=== PATIENT | female | born 1965 | race Caucasian/White ===

== ENCOUNTER → 2020-08-28 16:02 | Outpatient (CLI) | payer BC, SELFPAY ==
--- NOTE | ~2020-08-28 | MM_ITS ---
EXAMINATION: MM screening [facility] w catherine HISTORY: Screening mammogram TECHNIQUE: Craniocaudal and mediolateral oblique 3-D tomosynthesis images were obtained and synthetic 2-D images were generated. CAD analysis was submitted and interpreted. COMPARISON: 10/15/2017, 09/17/2016, 03/06/2015 bilateral digital screening mammogram examinations BREAST PARENCHYMAL COMPOSITION: There are scattered areas of fibroglandular density. FINDINGS: There is no evidence of suspicious mass, calcification, or architectural distortion to sugg est malignancy in either breast. There has been no suspicious interval change. IMPRESSION: 1. No mammographic evidence of malignancy. 2. Recommend routine screening mammography in one year. BI-RADS Category 1: Negative Reviewed, dictated and finalized at location A. 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
== END ==
PROVIDERS: Visit Provider Advanced Practice Midwife
DX: Z12.31 Encounter for screening mammogram for malignant neoplasm of breast (principal)
CPT/HCPCS: 77063; 77067

== ENCOUNTER → 2022-02-25 13:31 | Outpatient (CLI) | payer BC, SELFPAY ==
--- NOTE | ~2022-02-25 | MM_ITS ---
EXAMINATION: MM screening [facility] w catherine HISTORY: Screening mammogram TECHNIQUE: Craniocaudal and mediolateral oblique 3-D tomosynthesis images were obtained and synthetic 2-D images were generated. CAD analysis was submitted and interpreted. COMPARISON: 08/28/2020, 10/15/2017 bilateral screening mammogram examinations BREAST PARENCHYMAL COMPOSITION: There are scattered areas of fibroglandular density. FINDINGS: There is no evidence of suspicious mass, calcification, or architectural distortion to sugg est malignancy in either breast. There has been no suspicious interval change. IMPRESSION: 1. No mammographic evidence of malignancy. 2. Recommend routine screening mammography in one year. BI-RADS Category 1: Negative Reviewed, dictated and finalized at location A.
== END ==
PROVIDERS: PCP Advanced Practice Midwife; Visit Provider Advanced Practice Midwife
DX: Z12.31 Encounter for screening mammogram for malignant neoplasm of breast (principal)
CPT/HCPCS: 77063; 77067

== ENCOUNTER 2023-05-01 08:45 | Outpatient (CLI) | payer BC, SELFPAY ==
--- NOTE | ~2023-05-01 | MM_ITS ---
EXAMINATION: MM screening [facility] BI w catherine HISTORY: Screening mammogram TECHNIQUE: Craniocaudal and mediolateral oblique 3-D tomosynthesis images were obtained and synthetic 2-D images were generated. CAD analysis was submitted and interpreted. COMPARISON: 02/25/2022, 08/28/2020, 10/15/2017 BREAST PARENCHYMAL COMPOSITION: There are scattered areas of fibroglandular density. FINDINGS: No suspicious mass, calcification, or architectural distortion are identified in either isela ast to suggest malignancy. There has been no suspicious interval change. IMPRESSION: 1. No mammographic evidence of malignancy. 2. Recommend routine screening mammography in one year. BI-RADS Category 1: Negative Reviewed, dictated and finalized at location A.
== END 2023-05-01 08:46 | disposition home or self-care (01) ==
PROVIDERS: PCP Family Medicine; Visit Provider Obstetrics & Gynecology
DX: Z12.31 Encounter for screening mammogram for malignant neoplasm of breast (principal)
CPT/HCPCS: 77063; 77067

== ENCOUNTER → 2023-05-29 09:53 | Outpatient (CLI) | payer BC, SELFPAY ==
--- NOTE | ~2023-05-29 | XR_ITS ---
XR hip LT min 2V 05/29/2023 12:54 Indication: Left hip pain Procedure: 2 views left hip Comparison: No prior studies for comparison. Findings: No fracture, subluxation or dislocation. No significant soft tissue abnormality. There is a large calcification in the left pelvis, likely calcified uterine fibroid Impression: 1: No acute bone or joint abnormality. Reviewed, dictated and finalized at location L. Impression: 1: No acute bone or joint abnormality.
== END ==
PROVIDERS: PCP Physician Assistant Medical; Visit Provider Physician Assistant Medical
DX: M25.552 Pain in left hip (principal)
CPT/HCPCS: 73502

== ENCOUNTER 2023-12-24 10:56 | Outpatient (CLI) | payer BC, SELFPAY ==
--- NOTE | ~2023-12-24 | XR_ITS ---
Right Hand Technique: PA and lateral views were obtained. Clinical History: Pain Findings: No acute fracture or dislocation is seen. Osseous alignment is anatomic. Joint spaces are p reserved. Soft tissues are unremarkable. Impression: Unremarkable right hand. Reviewed, dictated and finalized at location M. Impression: Unremarkable right hand.
--- NOTE | ~2023-12-24 | XR_ITS ---
Left Hand Technique: PA and lateral views were obtained. Clinical History: Pain Findings: No acute fracture or dislocation is seen. Osseous alignment is anatomic. Joint spaces are p reserved. Soft tissues are unremarkable. Impression: Unremarkable left hand. Reviewed, dictated and finalized at location M. Impression: Unremarkable left hand.
== END 2023-12-24 10:57 ==
PROVIDERS: PCP Physician Assistant Medical
DX: M25.50 Pain in unspecified joint (principal); L40.9 Psoriasis, unspecified; M54.59 Other low back pain; Z79.899 Other long term (current) drug therapy; M79.18 Myalgia, other site
CPT/HCPCS: 73120

== ENCOUNTER 2024-06-21 11:36 | Outpatient (CLI) | payer BC, SELFPAY ==
--- NOTE | ~2024-06-21 | MM_ITS ---
EXAMINATION: MM screening [facility] BI w catherine HISTORY: Screening mammogram TECHNIQUE: Craniocaudal and mediolateral oblique 3-D tomosynthesis images were obtained and synthetic 2-D images were generated. CAD analysis was submitted and interpreted. COMPARISON: 05/01/2023, 02/25/2022, 08/28/2020 BREAST PARENCHYMAL COMPOSITION:Not Dense. There are scattered areas of fibroglandular density. FINDINGS: No suspicious mass, calcification, or architectural distortion are identified in either isela ast to suggest malignancy. There has been no suspicious interval change. IMPRESSION: No mammographic evidence of malignancy. Recommend routine screening mammography in one year. BI-RADS Category 1: Negative Reviewed, dictated and finalized at location .
== END 2024-06-21 11:37 | disposition home or self-care (01) ==
LOC: MICIMG 11:37
PROVIDERS: PCP Obstetrics & Gynecology; Visit Provider Physician Assistant Medical
DX: Z12.31 Encounter for screening mammogram for malignant neoplasm of breast (principal)
CPT/HCPCS: 77063; 77067

== ENCOUNTER 2025-07-15 08:56 | Outpatient (CLI) | payer BC, SELFPAY ==
--- NOTE | ~2025-07-15 | DEXA_ITS ---
Bone Density Report Name: JEREMIAS FOLEY Age: 59 Sex: Female Ethnicity: White Date of : 1965 Indication: postmenopausal; screening for osteoporosis; Referring Provider: YANG CHEEK Study: Bone densitometry was performed. Exam Date: July 15, 2025 Accession number: [id number] Bone Density: Region BMD T-score Z-score Classification AP Spine(L1-L4) 1.078 0.3 1.7 Normal Femoral Neck (Left) 0.872 0.2 1.5 Normal Total Hip (Left) 1.036 0.8 1.7 Normal Femoral Neck (Right) 0.936 0.8 2.1 Normal Total Hip (Right) 1.065 1.0 1.9 Normal Total Hip Mean 1.050 0.9 1.8 Normal World Health Organization criteria for BMD impression classify patients as: Normal (T-score at or above -1.0), Osteopenia (T-score between -1.0 and -2.5), or Osteoporosis (T-score at or below -2.5). 10-year Fracture Risk: FRAX not reported because: All T-scores for Spine Total, Hip Total, Femoral Neck at or above -1.0 Clinical Information Provided by Patient: Has used the following medications: HRT (i.e. estrogen/hormone therapy) Patient maximum height was 61 Menopause Age: 58 No regular weight bearing exercise Drinks caffeinated beverages Onset of menses at age 13 Number of children 0 Missed period for more than 6 months in a row Impression: The patient has normal bone mass. Discussion: BONE DENSITY IS ABOVE THE MINIMUM DESIRABLE LEVEL AT ALL SKELETAL SITES TESTED. This patient?s bone mineral density is above the minimum desirable level (T-score -1.0 or better) at all sites measured. The patient should follow a healthful lifestyle (good nutrition with adequate calcium and vitamin D, and appropriate weight-bearing exercise). Follow-Up: Consider repeating this study in 5 years or sooner if there is some new clinical indication. Reported by: REBEKA on 07/15/2025 9:57:00 AM. Reviewed, dictated and finalized at location A.
== END 2025-07-15 08:57 | disposition home or self-care (01) ==
PROVIDERS: PCP Obstetrics & Gynecology; Visit Provider Obstetrics & Gynecology
DX: Z78.0 Asymptomatic menopausal state (principal)
CPT/HCPCS: 77080

== ENCOUNTER 2025-07-28 08:13 | Outpatient (CLI) | payer BC, SELFPAY ==
--- NOTE | ~2025-07-28 | XR_ITS ---
XR lumbar spine min 4V 07/28/2025 08:46 Indication: Right-sided low back pain Procedure: 5 views lumbar spine Comparison: No prior studies for comparison. Findings: Vertebral body heights are maintained. There is mild disc narrowing at L2-3 and L3-4. No fracture, subluxation or spondylolisthesis. No spondylolysis. Densely calcified mass left pelvis, likely calcified uterine fibroid. Pedicles intact. Sacral foramen are symmetric. Impression: 1: Mild lumbar spondylosis. Reviewed, dictated and finalized at location O. Impression: 1: Mild lumbar spondylosis.
== END 2025-07-28 08:14 | disposition home or self-care (01) ==
LOC: MICIMG 08:18
PROVIDERS: PCP Obstetrics & Gynecology
DX: M54.41 Lumbago with sciatica, right side (principal); M47.896 Other spondylosis, lumbar region
CPT/HCPCS: 72110

== ENCOUNTER 2025-09-22 14:48 | Outpatient (CLI) | payer BC, SELFPAY ==
--- NOTE | ~2025-09-22 | MM_ITS ---
EXAMINATION: MM screening iraida BI w catherine HISTORY: Screening TECHNIQUE: Craniocaudal and mediolateral oblique 3-D tomosynthesis images were obtained and synthetic 2-D images were generated. CAD analysis was submitted and interpreted. COMPARISON: Comparison to multiple prior studies sequentially, with oldest reviewed study dated 09/17/2016. BREAST PARENCHYMAL COMPOSITION: Not dense: There are scattered areas of fibroglandular density. FINDINGS: There is no evidence of suspicious mass, calcification, or architectural distortion to suggest malignancy in either breast. There has been no suspicious interval change. IMPRESSION: 1. No mammographic evidence of malignancy. 2. Recommend routine screening mammography in one year. BI-RADS Category 1: Negative Reviewed, dictated and finalized at location O. 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
--- OUTSIDE RECORDS SUMMARY | 2025-09-22 15:45 | XMS_ITS | Clinical Summary ---
Author Organization [facility] [address] Address [address] [place] [address] Care Team Providers Care Insurance Sales Producer Name Role Phone Alisa Munson MD Primary Care Provider Allergies No known active allergies Medications estradioL (ESTRACE) 1 mg tablet Take 1 mg by mouth daily. 07/18/2025 Active progesterone micronized (PROMETRIUM) 100 mg Capsule Take 100 mg by mouth daily. Active Active Problems No known active problems Encounters Date Type Department Care Team Description 08/23/2025 External Device Data [facility] ABSTRACTION Provider, Abstract 08/01/2025 Results Follow-Up [facility] [address] [place] [phone] Rebeka Reyes PA XR LUMBAR SPINE 4+ VW 08/01/2025 Orders Only [facility] [address] [place] [phone] Rebeka Reyes PA 07/29/2025 Results Follow-Up [facility] [address] [place] [phone] Rebeka Reyes PA CBC WITH DIFFERENTIAL, COMPREHENSIVE METABOLIC PANEL, HEMOGLOBIN A1C, Additional followed-up results: 3 07/27/2025 External Device Data [facility] ABSTRACTION Provider, Abstract 07/27/2025 External Device Data [facility] ABSTRACTION Provider, Abstract 07/26/2025 External Device Data [facility] ABSTRACTION Provider, Abstract 07/22/2025 Telephone [facility] [address] [place] [phone] Alisa Munson MD Needs Orders Written 07/21/2025 Orders Only [facility] [address] [place] [phone] Provider, Abstract 07/19/2025 3:00 PM CDT Office Visit [facility] [address] [place] [phone] Rebeka Reyes PA Encounter to establish care (Primary Dx); Chronic right-sided low back pain with right-sided sciatica; Screening for colon cancer; Screening for cardiovascular condition; Screening for diabetes mellitus; Vitamin D deficiency; Anxiety; History of postmenopausal bleeding from Last 3 Months Social History Tobacco Use Types Packs/Day Years Used Date Smoking Tobacco: Never Smokeless Tobacco: Never Tobacco Cessation:Counseling Given: Not Answered Alcohol Use Standard Drinks/Week Comments Yes 0 (1 standard drink = 0.6 oz pur e alcohol) SOCIAL Comments No Sex and Gender Information Value Date Recorded Sex Assigned at Not on file Legal Sex Female 12:42 PM CDT Gender Identity Not on file Sexual Orientation Not on file Last Filed Vital Signs Vital Sign Reading Time Taken Comments Blood Pressure 110/60 07/19/2025 2:57 PM CDT Pulse 75 07/19/2025 2:57 PM CDT Temperature - - Respiratory Rate - - Oxygen Saturation 97% 07/19/2025 2:57 PM CDT Inhaled Oxygen Concentration - - Weight 70.9 kg (156 lb 3.2 oz) 07/19/2025 2:57 P M CDT Height 154.9 cm (5' 1) 07/19/2025 2:57 PM CDT Body Mass Index 29.51 07/19/2025 2:57 PM CDT Plan of Treatment Upcoming Encounters Date Type Department Care Team (Late st Contact Info) Description 09/28/2025 9:30 AM MAINTENANCE COORDINATOR Office Visit [facility] [address] [place] [phone] Rebeka Reyes PA [address] [place] [phone] 06/22/2026 9:30 AM CDT Office Visit [facility] [place] [address] [place] [address] Alisa Munson MD [address] [place] [address] Health Maintenance Due Date Last Done Comments DTAP/TDAP/TD VACCINES (1 - Tdap) 1984 HPV/Cotest (21-29) 1986 HPV/Cotest (30-65) 1995 COLORECTAL SCREENING 2010 Colorectal Cancer Screening 2010 FIT-DNA Q 3 years 2010 FIT/FOBT Q 1 year 2010 Flex Sig/CT Colonography Q 5 years 2010 ZOSTER VACCINE (1 of 2) 2015 INFLUENZA VACCINE (#1) 2025 COVID-19 Vaccine (2 - season) 2025 12/12/2020 BREAST CANCER SCREENING 06/21/2025 06/21/20 24, 02/25/2022, 08/28/2020 CERVICAL CANCER SCREENING 05/12/2028 PAP SMEAR 05/12/2028 05/12/2025 Pre-Diabetes and Diabetes Screening 07/28/2028 07/28/2025 RSV VACCINE (60+ or ) (1 - 1-dose 75+ series) 2040 Preventative Visit- Commercial Completed 07/19/2025, 02/09/2024, 01/02/2022, Additional history exists HEPATITIS B VACCINES Aged Out No long er eligible based on patient's age to complete this topic Procedures Procedure Name Priority Date/Time Associated Diagnosis Comments XR LUMBAR SPINE 4+ VW Routine 07/28/2025 8:40 AM CDT TSH REFLEXIVE Routine 07/28/2025 7:42 AM CDT Anxiety LIPID PANEL Routine 07/28/2025 7:42 AM CDT Screening for cardiovascular condition VITAMIN D 25 HYDROXY Routine 07/28/2025 7:42 AM CDT Vitamin D deficiency HEMOGLOBIN A1C Routine 07/28/2025 7:42 AM CDT Screening for diabetes mellitus COMPREHENSIVE METABOLIC PANEL Routine 07/28/2025 7:42 AM CDT Encounter to establish care CBC WITH DIFFERENTIAL Routine 07/28/2025 7:42 AM CDT Encounter to establish care XR DEXA BONE DENSITY AXIAL 1 OR MORE SITES Routine 07/15/2025 2:48 PM CDT MAMMO SCREENING BILAT Routine 06/21/2024 2:50 PM CDT from Last 3 Months or Most Recently Relevant to Health Maintenance Results * XR LUMBAR SPINE 4+ VW (07/28/2025 8:40 AM CDT) Anatomical Region Laterality Modality Spine Other us Rebeak KEVIN DIAGNOSTIC IMAGIN G ORDERABLES Final Result * TSH REFLEXIVE (07/28/2025 7:42 AM CDT) TSH 4.26 0.40 - 4.50 mIU/L [facility] Comment: Test Performed at: [facility] [address] [place] [address] De Monahan MD Blood 07/28/2025 7:42 AM CDT 07/28/2025 7:43 AM CDT us Rebeka KEVIN CHEMISTRY ORDERAB LES Final Result [facility] [phone] [facility] [address] [place] [address] * CBC WITH DIFFERENTIAL (07/28/2025 7:42 AM CDT) WBC 6.3 3.8 - 10.8 Thousand/u L [facility] RBC 4.21 3.80 - 5.10 Million/uL [facility] HEMOGLOBIN 13.1 11.7 - 15.5 g/dL [facility] HEMATOCRIT 39.7 35.0 - 45.0 % [facility] MCV 94.3 80.0 - 100.0 fL [facility] MCH 31.1 27.0 - 33.0 pg [facility] MCHC 33.0 32.0 - 36.0 g/dL [facility] Comment: For adults, a slight decrease in the calculated MCHC value (in the range of 30 to 32 g/dL) is most likely not clinically significant; however, it should be interpreted with caution in correlation with other red cell parameters and the patient's clinical condition. RDW 12.6 11.0 - 15.0 % [facility] PLATELETS 171 140 - 400 Thousand/u L [facility] MPV 10.9 7.5 - 12.5 fL [facility] NEUTROPHIL ABSOLUTE 4,139 1,500 - 7,800 cells/uL [facility] LYMPHOCYTE ABSOLUTE 1,424 850 - 3,900 cells/uL [facility] MONOCYTE ABSOLUTE 384 200 - 950 cells/uL [facility] EOSINOPHIL ABSOLUTE 321 15 - 500 cells/uL [facility] BASOPHILS ABSOLUTE 32 0 - 200 cells/uL [facility] NEUTROPHIL 65.7 % [facility] LYMPHOCYTES 22.6 % [facility] MONOCYTE 6.1 % [facility] EOSINOPHILS 5.1 % [facility] BASOPHILS 0.5 % [facility] Comment: Test Performed at: [facility] [address] [facility] [place] [address] De Monahan MD Blood 07/28/2025 7:42 AM CDT 07/28/2025 7:43 AM CDT us Rebeka KEVIN HEMATOLOGY ORDERA BLES Final Result [facility] [phone] [facility] [employer] [address] [place] [address] * VITAMIN D 25 HYDROXY (07/28/2025 7:42 AM CDT) VITAMIN D, 25 OH, TOTAL 60 30 - 100 ng/mL [facility] Comment: Vitamin D Status 25-OH Vitamin D: Deficiency: <20 ng/mL Insufficiency: 20 - 29 ng/mL Optimal: > or = 30 ng/mL For 25-OH Vitamin D testing on patients on D2-supplementation and patients for whom quantitation of D2 and D3 fractions is required, the QuestAssureD(TM) 25-OH VIT D, (D2,D3), LC/MS/MS is recommended: order code 10907 (patients >2yrs). See Note 1 Note 1 For additional information, please refer to http://education.Restalo/faq/JJJ477 (This link is being provided for informational/ educational purposes only.) Test Performed at: [facility] [address] De Monahan MD Blood 07/28/2025 7:42 AM CDT 07/28/2025 7:43 AM CDT Rebeka KEVIN CHEMISTRY ORDERAB LES Final Result [facility] [phone] [facility] [address] * HEMOGLOBIN A1C (07/28/2025 7:42 AM CDT) HEMOGLOBIN A1C 5.3 <5.7 % of total Hgb [facility] Comment: For the purpose of screening for the presence of diabetes: <5.7% Consistent with the absence of diabetes 5.7-6.4% Consistent with increased risk for diabetes (prediabetes) > or =6.5% Consistent with diabetes This assay result is consistent with a decreased risk of diabetes. Currently, no consensus exists regarding use of hemoglobin A1c for diagnosis of diabetes in children. According to [place] Diabetes Association (ADA) guidelines, hemoglobin A1c <7.0% represents optimal control in non- diabetic patients. Different metrics may apply to specific patient populations. Standards of Medical Care in Diabetes(ADA). ESTIMATED AVERAGE GLUCOSE (MG/DL) 105 mg/dL [facility] [employer] ESTIMATED AVERAGE GLUCOSE (MMOL/L) 5.8 mmol/L [facility] Comment: Test Performed at: [facility] [address] [place] [address] De Monahan Blood 07/28/2025 7:42 AM CDT 07/28/2025 7:43 AM CDT Rebeka KEVIN CHEMISTRY ORDERAB LES Final Result [facility] [phone] [facility] [address] [place] [address] * (ABNORMAL) LIPID PANEL (07/28/2025 7:42 AM CDT) CHOLESTEROL 196 <200 mg/dL [facility] HDL 75 > OR = 50 mg/dL [facility] TRIGLYCERIDE 95 <150 mg/dL [facility] LDL CALCULATED 102(H) mg/dL (calc) [facility] Comment: Reference range: <100 Desirable range <100 mg/dL for primary prevention; <70 mg/dL for patients with CHD or diabetic patients with > or = 2 CHD risk factors. LDL-C is now calculated using the Ilia calculation, which is a validated novel method providing better accuracy than the Friedewald equation in the estimation of LDL-C. Darek GRULLON et al. JAMEEL. 2013;310(19): 4873-7303 (http://education.Websense.[place] PUD/faq/MCU145) CHOL/HDL RATIO 2.6 <5.0 (calc) [facility] NON-HDL CHOLESTEROL 121 <130 mg/dL (calc) [facility] Comment: For patients with diabetes plus 1 major ASCVD risk factor, treating to a non-HDL-C goal of <100 mg/dL (LDL-C of <70 mg/dL) is considered a therapeutic option. Test Performed at: [facility] [address] [address] De Monahan MD Blood 07/28/2025 7:42 AM CDT 07/28/2025 7:43 AM CDT us Rebeka KEVIN CHEMISTRY ORDERAB LES Final Result [facility] [phone] [facility] [address] [address] * COMPREHENSIVE METABOLIC PANEL (07/28/2025 7:42 AM CDT) GLUCOSE 91 65 - 99 mg/dL [facility] Comment: Fasting reference interval BUN 17 7 - 25 mg/dL [facility] CREATININE 0.82 0.50 - 1.03 mg/dL [facility] GFR 82 > OR = 60 mL/min/1. 73m2 [facility] BUN/CREAT RATIO SEE NOTE: 6 - 22 (calc) [facility] Comment: Not Reported: BUN and Creatinine are within reference range. SODIUM 141 135 - 146 mmol/L [facility] POTASSIUM 4.3 3.5 - 5.3 mmol/L [facility] CHLORIDE 104 98 - 110 mmol/L [facility] CO2 32 20 - 32 mmol/L [facility] CALCIUM 9.0 8.6 - 10.4 mg/dL [facility] TOTAL PROTEIN 6.1 6.1 - 8.1 g/dL [facility] ALBUMIN 4.1 3.6 - 5.1 g/dL [facility] GLOBULIN 2.0 1.9 - 3.7 g/dL (calc) [facility] ALBUMIN/GLOBULIN RATIO 2.1 1.0 - 2.5 (calc) [facility] BILIRUBIN TOTAL 0.7 0.2 - 1.2 mg/dL [facility] ALKALINE PHOSPHATASE 75 37 - 153 U/L [facility] AST 19 10 - 35 U/L [facility] ALT 11 6 - 29 U/L [facility] Comment: Test Performed at: [facility] [address] [place] [address] De Monahan MD Blood 07/28/2025 7:42 AM CDT 07/28/2025 7:43 AM CDT us Rebeka KEVIN CHEMISTRY ORDERAB LES Final Result [facility] [phone] [facility] [address] [place] [address] * XR DEXA BONE DENSITY AXIAL 1 OR MORE SITES (07/15/2025 2:48 PM CDT) Anatomical Region Laterality Modality Other us Abstract Provider DIAGNOSTIC IMAGING ORDERABLES Edited Result - Final * MAMMO SCREENING BILAT (06/21/2024 2:50 PM CDT) Anatomical Region Laterality Modality Breast Bilateral Mammography us Abstract Provider MAMMO ORDERABLES Edited Result - Final from Last 3 Months or Most Recently Relevant to Health Maintenance Insurance Care Teams Insurance Sales Producer Relationship Specialty Start Date End Date Alisa Munson MD [address] [place] [address] PCP - General Family Practice 07/19/25
--- OUTSIDE RECORDS SUMMARY | 2025-09-22 15:45 | XMS_ITS | Continuity of Care Document ---
Author Organization [facility] [place] Address [address] [place] [address] Assessment No assessment recorded. Plan of Treatment Reminders Order Date Submit Date Provider Last Modified By Organization Details Last Modified Time Details Appointments None recorded. Lab surgical pathology study 2024 025 [facility] (Lab), [address], [place], [address], 20:53:11 test, urine 2024 025 [id number], [place], [address], 10:12:43 Referral None recorded. Procedures None recorded. Surgeries None recorded. Imaging None recorded. Medication Orders None recorded. Patient TargetsNo targets recorded. Patient InstructionsNo instructions recorded. Reason for Referral None Reported. Results Created Date Observation Date Name Description Value Unit Range Abnormal Flag Note LastModifiedBy Organization Detail LastModifiedTime 07/05/2007/05/2025 SURGI TY PATHO LOGY surgical pathology SEE RESULT S BELOW CASE REPOR T: Surgi ty Patho logy Repor t Case: [id number] Autho hitesh lanier Provi yaneli: Elizabeth Goncalves MD Colle cted: 07/05 1341 Order ing Locat ion: [place] Patho logy Recei sabrina: 07/06 0318 Patho logis t: Eleno Conn MD Speci men: Alberto servin, EMB ----- ----- ----- ----- ----- ----- ----- ----- ----- ----- ----- ----- ----- ----- ----- ----- ----- ---- FINAL DIAGN OSIS: Alberto servin, biops y: -Supe rfici al strip s of inact porter endom etriu gareth. -Mark gn cervi ty tissu e. Elect eddie cartwright by Eleno Conn MD on 2024 at 1949 CDT ----- ----- ----- ----- ----- ----- ----- ----- ----- ----- ----- ----- ----- ----- ----- ----- ----- ---- CLINI TY INFOR MATIO N: Thick ened Endom jevona majo lanier MICRO SCOPI C DESCR IPTIO N: A micro scopi c exami natio n was perfo rmed. GROSS DESCR IPTIO N: A. Endom etriu m. The speci men is recei sabrina in danyelle hanley ed with the patie nt's name and demog raphi cs only. It consi sts of a 2.6 x 2.0 x 0.2 cm aggre gate of mucus and minut e brown tissu e. The speci men is submi tted entir joon in 1 casse tte. Gross ed by Chrissie rosenberg Not Available [facility] (Lab) [address], [place], [address], 07/06/2025 20:53:10 07/05/2007/05/2025 pregn valerio test, urine HCG negati ve Not Available [facility], [place], [address], 07/05/2025 09:53:21 07/15/2007/15/2025 DEXA, axial skele ton + verte bral fract ure asses sment No observ ation record ed. [facility] [address], [place], [address], 07/19/2025 10:17:28 07/28/2007/28/2025 XR, lumba r spine No observ ation record ed. [email or web address] [facility] [address], [place], [address], 07/30/2025 22:12:05 Result Notes None recorded. Problems Name Problem SNOMED Code Status Onset Date Resolution Date Notes Provider Name and Address Organization Details Recorded Time Screenin g for malignan t neoplasm of cervix Completed 201412/20/2020 Pap Smear;[facility] 0001 [facility] Screenin g for malignan t neoplasm of rectum Completed 201412/20/2020 Screenin g for malignan t neoplasm s of the rectum;P ractice ID: 0001 Malia lynn [facility] 16:06:33 Overwe ht [id number] Completed 201412/20/2020 Overwe ht;Recor ded Elsewher e: No Locat ion: [facility] S ource: [employer] Project Builder thomas: N Practi ce ID: 0001 Gualberto lable Time: 03:30:00 PM Malia lynn [facility] 16:06:28 Adult health examinat ion Completed 201412/20/2020 ROUTINE MEDICAL EXAM;Rec orded Elsewher e: No Locat ion: [facility] S ource: [employer] thomas: N Practi ce ID: 0001 Gualberto lable Time: 03:30:00 PM Malia lynn, [facility] 16:06:21 Speciali jungd medical examinat ion Completed 201412/20/2020 Gynecolo gical Examinat ion;Christiano rded Elsewher e: No Locat ion: [facility] N Dre ce ID: 0001 Gualberto lable Time: 03:30:00 PM Malia lynn, [facility] 16:06:[address] Concept Completed 201512/20/2020 Encntr for general adult medical exam w/o abnormal findings ;Practic e ID: 0001 Malia lynn, [facility] 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 16:06:37 Body mass index 25-29 - overweig ht [id number] Completed 201712/20/2020 Body mass index (BMI) 29.0-29. 9, adult;Re corded Elsewher e: No Locat ion: [facility]: N Dre ce ID: 0001 Gualberto lable Time: 05:30:00 PM Malia lynn, [facility] 16:06:23 Hypertro phy of uterus [id number] Completed 201712/20/2020 Enlarged uterus;R ecorded Elsewher e: No Locat ion: [facility] S ource: [facility] thomas: N Dre ce ID: 0001 Gualberto lable Time: 05:30:00 PM Malia Mar [facility], [facility] 03/17/202 1 16:06:26 Problem Notes None recorded. Procedures Surgical History Date Name Laterality Status Provider Name and Address Organization Details Recorded Time 07/05/20 25 Endometrial Biopsy completed ANDRA JOHNSON MD [address], [place], [address], [facility] 07/05/2025 10:12:29 05/12/20 25 Date of Last Pap Smear completed Gale Greer [facility] 07/05/2025 09:45:15 06/21/20 24 Date of Last Mammogram completed Anne-Marie Taylor [facility] 10/20/2024 17:25:38 09/13/20 20 Hysteroscopy completed Emilee Saez CNM [address], [place], [address], [facility] 09/13/2020 12:43:10 09/13/20 20 Hysteroscopy completed [facility] 09/13/2020 09:41:48 06/02/19 94 delivery completed [facility] 02/09/2024 11:48:34 10/06/18 91 extraction of wisdom tooth completed Malia [facility] 02/09/2024 11:47:51 Imaging Results None recorded. Procedure Notes None recorded. Medical Equipment None Reported. Allergies Allergen ID Allergen Name Allergen Category Reaction Reaction Severity Criticality Documentation Date Start Date Code Code System Note Provider Name and Address Organization Details Recorded Time 56955 copper environme nt,medica tion Not available Not available low 09/20/20252010 2837 RxNorm unrec ogniz ed react ion (text : Unkno wn, code: 72900 [id number]) (from [facility]ter [facility]) Not Available vane - External Data Service - prod 5 09:29:19 Medications Name Sig Start Date Stop Date Status Note LastModified by Organization Details LastModified Time tretinoin 0.045%, hydroquin one 6%, fluocinol one 0.01% topical gel APPLY TO THE AFFECTED AREA(S) DAILY 05/12 completed Not Available Not Available Not Available celecoxib 200 mg capsule TK 1 C PO THE NIGHT BEFORE PROCEDUR E AND 2 CS THE MORNING OF THE PROCEDUR E 09/13 completed Not Available Not Available Not Available cyclobenz aprine 10 mg tablet TAKE 1 TABLET BY MOUTH THREE TIMES DAILY NEEDED FOR MUSCLE SPASM 02/08 completed Not Available Not Available Not Available prednison e 10 mg tablet 02/08 completed Not Available Not Available Not Available azithromy navid 250 mg tablet TAKE 2 TABLETS BY MOUTH FOR 1 DAY THEN TAKE 1 TABLET BY MOUTH DAILY FOR 4 DAYS 10/20 completed Not Available Not Available Not Available diclofena c ER 100 mg tablet,ex tended release 24 hr take 1 tablet by oral route every day 12/20 completed Prescrib ed Elsewher e: Yes Loca tion: [facility] odify By: edi donovan DateTime : 03/06/20 15 03:30:00 PM Not Available Not Available Not Available hydrocort isone 1 % topical ointment 07/03 completed Not Available Not Available Not Available ondansetr on HCl 8 mg tablet TK 1 T PO 2 H BEFORE PROCEDUR E 09/13 completed Not Available Not Available Not Available hydroquin one 4 % topical cream 03/07 completed Not Available Not Available Not Available ondansetr on HCl 4 mg tablet Take 1 tablet 3 times a day by oral route. 12/20 completed Not Available Not Available Not Available prednison e 20 mg tablet 07/03 completed Not Available Not Available Not Available hydrocodo ne 10 mg-acetam inophen 325 mg tablet TK 1 T PO 1 HOUR BEFORE PROCEDUR E 09/13 completed Not Available Not Available Not Available lidocaine -prilocai ne 2.5 %-2.5 % topical cream APPLY 1/2 TUBE 1 HOUR PRIOR TO PROCEDUR E 02/08 completed Not Available Not Available Not Available ketorolac 10 mg tablet 02/08 completed Not Available Not Available Not Available amoxicill in 875 mg tablet 07/03 completed Not Available Not Available Not Available estradiol 1 mg tablet TAKE 1 TABLET BY MOUTH EVERY DAY 2024 active Not Available Not Available Not Avai lable Flagyl 500 mg tablet Take 1 tablet every 12 hours by oral route. 07/19 completed Not Available Not Available Not Available benzonata te 100 mg capsule TAKE ONE CAPSULE BY MOUTH EVERY 8 HOURS NEEDED FOR COUGH 10/20 completed Not Available Not Available Not Available neomycin- polymyxin -dexameth 3.5 mg/mL-10, 000 unit/mL-0 .1% eye drops INSTILL 1 DROP INTO RIGHT EYE 3 TIMES A DAY FOR 7 DAYS, SHAKE WELL 01/02 completed Not Available Not Available Not Available lidocaine 5 % topical patch UNWRAP AND APPLY 1 PATCH TO SKIN DAILY FOR 30 DAYS. REMOVE AND DISCARD PATCH WITHIN 12 HOURS OR DIRECTED BY 02/08 completed Not Available Not Available Not Available progester one micronize d 200 mg capsule TAKE 1 CAPSULE BY MOUTH EVERY DAY 2024 active Not Available Not Available Not Avai lable norethind miriam acetate 5 mg tablet TAKE 1 TABLET BY MOUTH EVERY DAY 02/08 completed Not Available Not Available Not Available diazepam 10 mg tablet TK 1 T PO 1 HOUR BEFORE PROCEDUR E 09/13 completed Not Available Not Available Not Available calcipotr iene 0.005 % scalp solution APPLY TO THE SCALP TWICE DAILY FOR ONGOING MAINTENA NCE AFTER 2 WEEKS OF CLOBETAS OL 05/12 completed Not Available Not Available Not Available estradiol 0.01% (0.1 mg/gram) vaginal cream Insert 1g vaginall y at bedtime every night for 1 month then insert 1g vaginall y at bedtime 2-3 times per week for maintena nce dose 05/12 completed Not Available Not Available Not Available methylpre dnisolone 4 mg tablets in a dose pack FOLLOW PACKAGE DIRECTIO NS 02/08 completed Not Available Not Available Not Available clobetaso l 0.05 % scalp solution APPLY TO SCALP RASH TWICE DAILY 02/08 completed Not Available Not Available Not Available fluticaso ne propionat e 50 mcg/actua tion nasal spray,lina pension USE 1 SPRAY IN EACH NOSTRIL ONCE DAILY FOR 10 DAYS 10/20 completed Not Available Not Available Not Available progester one micronize d 100 mg capsule TAKE 1 CAPSULE BY MOUTH EVERY DAY 2024 active Not Available Not Available Not Avai lable amoxicill in 875 mg-potass ium clavulana te 125 mg tablet 10/20 completed Not Available Not Available Not Available Tri-Jenni 0.01 %-4 %-0.05 % topical cream APPLY TO THE AFFECTED AREA ON FACE EVERY NIGHT AT BEDTIME 30 MINUTES BEFORE BEDTIME FOR 8 WEEKS 01/02 completed Not Available Not Available Not Available Fioricet 50 mg-300 mg-40 mg capsule Take 1 capsule every 4 hours by oral route. 01/02 completed Not Available Not Available Not Available butalbita l 50 mg-acetam inophen 300 mg-caffei ne 40 mg-codein e 30 mg cap 01/02 completed Not Available Not Available Not Available Vitals Date Recorded Body height Body mass index (BMI) Body weight Systolic And Diastolic Provider Name and Address Organization Details Last Updated DateTime 07/05/2025 154.94 cm 29.5 kg/m2 22385.41 g 108/70 mm[Hg] Gale Greer [facility] 07/05/2025 09:45:00 Social History Question Answer Notes LastModified by Organizat ion Details LastModified Time Tobacco Smoking Status Never Smoker aMlia lynn, [facility] 12/20/2020 16:05:50 Do You Have An Advance Directive? No Information n ot available 12/20/2020 How Many Years Have You Consumed Alcohol? 30 [email or web address] Information not available 05/12/2025 Are You Blind Or Do You Have Difficulty Seeing? No [email or web address] Information n ot available 12/20/2020 What Is Your Level Of Caffeine Consumption? Moderate [email or web address] Information not available 05/12/2025 In The 14 Days Before Symptom Onset, Have You Had Close Contact With A Laboratory-confirm ed COVID-19 While That Case Was Ill? No [email or web address] Information n ot available 12/20/2020 In The 14 Days Before Symptom Onset, Have You Had Close Contact With A Person Who Is Under Investigation For COVID-19 While That Person Was Ill? No [email or web address] Information not available 12/20/2020 Have You Been To An Area Known To Be High Risk For COVID-19? No [email or web address] Information not available 12/20/2020 Are You Deaf Or Do You Have Serious Difficulty Hearing? No Information not available 12/20/2020 What Type Of Diet Are You Following? REGULAR [email or web address] Information n ot available 03/07/2021 What Is The Highest Grade Or Level Of School You Have Completed Or The Highest Degree You Have Received? [id number] [email or web address] Information not available 12/20/2020 Are There Any Guns Present In Your Home? No [email or web address] Information not available 12/20/2020 What Was The Date Of Your Most Recent Tobacco Screening? 02/09/2024 [email or web address] Information not available 02/09/2024 Have You Ever Been Counseled For Unhealthy Alcohol Use? No [email or web address] Information not available 12/20/2020 Do You Use Protection During Sex? No [email or web address] Information not available 05/12/2025 Do You Use Your Seat Belt Or Car Seat Routinely? Yes [email or web address] Information not available 12/20/2020 Do You Have Smoke And Carbon Monoxide Detectors In Your Home? Yes [email or web address] Information not available 12/20/2020 How Much Tobacco Do You Smoke? No [email or web address] Information not available 08/09/2020 Do You Use Sunscreen Routinely? Yes [email or web address] Information not available 12/20/2020 Has Tobacco Cessation Counseling Been Provided? No [email or web address] Information not available 12/20/2020 Have You Used IV Drugs? No [email or web address] Information not available 12/20/2020 Do You Have Difficulty Walking Or Climbing Stairs? No Information not available 01/02/2022 Sex: Unknown Functional Status Question Answer Note LastModified by Organizat ion Details LastModified Time Do you use any illicit or recreational drugs? No [email or web address] Information not available 12/20/2020 Do you or have you ever used any other forms of tobacco or nicotine? No [email or web address] Information not available 12/20/2020 What is your level of alcohol consumption? Occasional [id number] Information not available 08/08/2020 Do you or have you ever used smokeless tobacco? Never used smokeless tobacco [email or web address] Information not available 12/20/2020 Are you able to walk independently without assistance or assistive devices? YESWOREST [email or web address] Information not available 12/20/2020 Are you able to care for yourself independently? Yes [email or web address] Information not available 01/02/2022 What is your occupation? Retired [email or web address] Information not available 05/12/2025 Do you have difficulty dressing, bathing, grooming, or toileting? No [email or web address] Information not available 01/02/2022 Do you or have you ever used e-cigarettes or vape? Never used electronic cigarettes [email or web address] Information not available 12/20/2020 What is your exercise level? Occasional [id number] Information not available 08/08/2020 Mental Status Question Answer Note LastModified by Organization D etails LastModified Time Do you feel stressed (tense, restless, nervous, or anxious, or unable to sleep at night)? [id number] [email or web address] Information not available 12/20/2020 Family History Relationship Description Onset Age of this Age Resolved Age Notes LastModified by Organization Details LastModified Time Mother Diabetes mellitus [email or web address] Not available 2019 13:33:30 Mother Malignant neoplasm of pharynx Not available 2024 11:46:20 Mother Malignant neoplasm of thyroid gland 48 [email or web address] Not available 2024 11:46:20 Father Malignant neoplasm of liver 76 [email or web address] Not available 2024 11:46:20 Sister Cyst of ovary [email or web address] Not available 2024 11:46:20 Notes:Father: Liver Cancer M other: Diabetes mellitus, Throat Cancer Sister: Ovarian cyst Medical History Condition Response Allergies (Food, seasonal, environmental ) N Other Y Breast Cancer N Drug/Latex Allergies/Reactions Y Blood Transfusion N Dermatologic Disorders Y Lung Disease N Defects or Inherited Disease N Breast Problem N Gestational Diabetes N Hematologic disorders N Anesthesia Complications N History of STI N Deep Vein Thrombosis N Polycystic ovary syndrome N Anxiety Disorder N Autoimmune disease N Arthritis Y Infertility N Polyps N Acid Reflux (GERD) N History of abnormal pap N Cancer N Stroke N Varicosities N Neurologic/Epilepsy N Endometriosis N High Cholesterol N Headaches N Fibromyalgia N Kidney Disease N Heart Problems N Kidney or Bladder Problems N Thyroid Problems N GI Problems N Eating Disorder N Anemia N Art (IVF or FET) N Psychiatric Illness N Ovarian Cancer N Diabetes N Pulmonary (TB, Asthma) N Hepatitis/Liver Disease N No Past Medical History N Eczema N Urinary Tract Infection N Abuse/Domestic Violence N Asthma N Trauma/Violence N Depression/ depression N Heart Disease N Pre-Eclampsia N Hypertension N Osteoporosis N Thrombophilias N Gynecological History Statement/Question Response Abnormal Pap N Date of Last Mammogram 06/21/2024 Flow Light Date of LMP 05/28/2025 On BCP's at Conception? N Y Was last menstrual period normal N STIs/STDs N HPV Vaccine N Duration of Flow (days) 1 Current Control Method Menopause Age at First Child 28 Are cycles usually normal N Sexually Active? Y Menses Monthly N Date of DEXA bone scan Date of Last Pap Smear 05/12/2025 Sexual Problems? N LMP Definite Y Obstetrics History GPAL:G 1 P 1 0 0 1 Type Value Full Term 1 Living 1 Total 1 Past Encounters Encounter ID Performer Location Encounter Start Date Encounter Closed Date Diagnosis/Indication Diagnosis SNOMED-CT Code Diagnosis ICD10 Code Diagnosis IMO Codes Diagnosis Note [id number] ANDRA JOHNSON MD [facility] [address] [address] 07/05/2025 09:32:06 07/05/2025 10:42:46 Screening procedure 85303742 Z13.9 214223 Postmenopa usal bleeding 77608797 N95.0 29787 - EMB performed without issue- will follow up on results as available Health Concerns Section Related Observation LastModified by Organization Detai ls LastModified Time None Recorded Concern Status LastModified by Organization Details LastModified Time None Recorded Payers Encounter Date Sequence Insurance Name Policy Number Policy Barragan Covered Member ID Barragan Member ID Guarantor Name 07/05/2025 1 [employer]) [id number] Facundo Agosto [id number] Facundo Agosto Notes Date Note Type Note Provider Name and Address Organization Details Recorded Time 07/05/2025 text/html ROS as noted in the HPI Patient presents for endometrial biopsy indicated for postmenopausal bleeding. Endometrial stripe measured 6.4mm on recent US. ANDRA JOHNSON MD [address], [place], [address], [facility] 07/05/2025 10:41:40 OBGyn Episode No OBEpisode recorded.
--- OUTSIDE RECORDS SUMMARY | 2025-09-22 15:45 | XMS_ITS | Clinical Summary ---
Author Organization [facility] Address [address] [place] [address] Care Team Providers Care Broth Mixer Name Role Phone Yessenia Bravo MD Primary Care Provider [phone] [facility],non-owned Affiliates and Associated Physician Practices is amultiple site organization consisting of ambulatory clinics and hospital sitesin [place], [place], [place] and [place]. This disclosure is being madepursuant to the Care Everywhere program and may not contain all information available regarding this patient. Last updated 18.[facility] Allergies Active Allergy Reactions Criticality Noted Date Comments Copper 06/19/2011 Medications * Be aware that medications may not be up to date on this document. Alwaysverify current medications with the patient. fluocinolone-hy droquinone-tret inoin (TRI-CHAN) 0.01-4-0.05 % creamIndication s:Lentigines Apply to affected area nightly for 9 months. 30 g 2 03/23/2021 Active hydrocortisone (HYTONE) 1 % ointment Active Active Problems Problem Noted Date Diagnosed Date Fluid level behind tympanic membrane 03/23/2021 Pain of ear structure 03/23/2021 Seasonal allergies 03/23/2021 Posterior rhinorrhea 03/23/2021 Thumb pain 03/23/2021 History of colonic polyps 08/24/2018 Chloasma 06/20/2011 Melasma 06/20/2011 Resolved Problems Problem Noted Date Diagnosed Date Resolved Date Upper respiratory infection 03/23/2021 04/06/2021 Family History Medical History Relation Name Comments Cancer - Liver Father Cancer - Thyroid Mother Relation Name Status Comments Father Mother Social History Tobacco Use Types Packs/Day Years Used Date Smoking Tobacco: Never Smokeless Tobacco: Never Tobacco Cessation:Counseling Given: Not Answered Alcohol Use Standard Drinks/Week Comments Yes 2 (1 standard drink = 0.6 oz pur e alcohol) Comments Unknown Sex and Gender Information Value Date Recorded Sex Assigned at Not on file Legal Sex Female 6:04 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 Gender Identity Not on file Sexual Orientation Not on file Last Filed Vital Signs Vital Sign Reading Time Taken Comments Blood Pressure 106/68 01/15/2024 11:19 AM CDT Pulse 72 01/15/2024 11:19 AM CDT Temperature - - Respiratory Rate 16 01/15/2024 11:19 AM CDT Oxygen Saturation 98% 01/15/2024 11:19 AM CDT Inhaled Oxygen Concentration - - Weight 70.8 kg (156 lb) 01/15/2024 11:19 AM CDT Height 154.9 cm (5' 1) 01/15/2024 11:19 AM CDT Body Mass Index 29.48 01/15/2024 11:19 AM CDT Plan of Treatment Health Maintenance Due Date Last Done Comments COLOGUARD (AGES 45-75) - COL ON CA SCREENING 1965 COLON MONITORING 1965 COLONOSCOPY - COLON CA SCREENING 1965 CT COLONOGRAPHY - COLON CA SCREENING 1965 Colorectal Cancer Screening 1965 FIT - COLON CA SCREENING 1965 FLEX SIG - COLON CA SCREENING 1965 LIPID TESTING 1965 MAMMOGRAM 1965 HIV SCREENING 1980 DTAP/TDAP/TD VACCINES (1 - Tdap) 1984 PAP SMEAR 1986 PNEUMOCOCCAL VACCINE 50+ (1 of 1 - PCV) 2015 ZOSTER VACCINE (1 of 2) 2015 SCREENING FOR DIABETES 12/19/2023 DEPRESSION SCREENING 10/06/2024 COVID-19 VACCINE (2 - 2024-2 6 season) 2025 12/12/2020 INFLUENZA VACCINE (#1) 2025 Respiratory Syncytial Virus (RSV) Vaccine Pt: or over 60 yrs (1 - 1-dose 75+ series) 2040 HEPATITIS C SCREENING Completed 12/24/2023 HEPATITIS B VACCINE Aged Out No longe r eligible based on patient's age to complete this topic HIB VACCINE Aged Out No longer eligi ble based on patient's age to complete this topic HPV VACCINE Aged Out No longer eligi ble based on patient's age to complete this topic MENINGOCOCCAL (Group B) VACC INE SHARED DECISION-MAKING Aged Out No longer eligibl e based on patient's age to complete this topic MENINGOCOCCAL GROUPS A/C/Y/W VACCINE Aged Out No longer eligible b ased on patient's age to complete this topic Procedures Procedure Name Priority Date/Time Associated Diagnosis Comments HEPATITIS SCREEN ACUTE ([facility]) Routine 12/24/2023 10:48 AM CDT Polyarthralgia Psoriasis Other low back pain Encounter for long-term (current) use of high-risk medication Myalgia, multiple sites from Last 3 Months or Most Recently Relevant to Health Maintenance Results * HEPATITIS SCREEN ACUTE ([facility]) (12/24/2023 10:48 AM CDT) Hepatitis A Virus Antibody IgM Negative Negative [facility] INSURANCE BILL Hepatitis B Virus Surface Antigen Negative Negative [facility] INSURANCE BILL Hepatitis B Core Virus Antibody IgM Negative Negative [facility] INSURANCE BILL Hepatitis C Antibody Non Reactive Non Reactive [facility] INSURANCE BILL Blood BLOOD SPECIMEN / Unknown 12/24/2023 10:48 AM CDT 12/24/2023 Narrative Resulting Agency Comment [facility] performed [facility]: [facility] [address] [facility] [id number] us Rosa So MD LAB - CHEMISTRY ORDERABLES Final Result [facility] INSURANCE BILL [address] [place] [id number] from Last 3 Months or Most Recently Relevant to Health Maintenance Insurance [facility] Care Teams Broth Mixer Relationship Specialty Start Date End Date Yessenia Bravo MD [address] [place] [phone] PCP - General 11/19/21
--- OUTSIDE RECORDS SUMMARY | 2025-09-22 15:45 | XMS_ITS | Clinical Summary ---
Author Organization [facility] Address [address] [place] [id number] Care Team Providers Care Master Certified Rv Technician Name Role Phone Dominique Gallagher NP Primary Care Provider [phone] Allergies Active Allergy Reactions Criticality Noted Date Comments Copper Unknown Low 06/19/2011 Medications fluocinolone-hy droq.-tretinoin (TRI-CHAN) 0.01-4-0.05 % cream APPLY SPARINGLY TO melasma on face ONCE DAILY 8 Active hydrocortisone 2.5 % ointment Apply twice daily to Left eyelid for 2 weeks 8 Active Active Problems Problem Noted Date Diagnosed Date Seasonal allergies 02/21/2021 Immunizations Immunization Administration Dates Next Due [employer] ([employer]) SARS-CoV-2 Vaccination 12/12/2020 Surgical History Surgery Date Site/Laterality Comments SECTION Family History Medical History Relation Name Comments Cancer Father Cancer Mother Relation Name Status Comments Father Mother Social History Tobacco Use Types Packs/Day Years Used Date Smoking Tobacco: Never Smokeless Tobacco: Never Alcohol Use Standard Drinks/Week Comments Defer 0 (1 standard drink = 0.6 oz pur e alcohol) Personal Safety Answer Date Recorded Getting School Help Needed Not on file 12/18 Comments Unknown Sex and Gender Information Value Date Recorded Sex Assigned at Not on file Legal Sex Female 9:54 AM [employer]KER Gender Identity Not on file Sexual Orientation Not on file Occupation Industry Job Start Date Job End Date EMPLOYED Not on file Not on file Not on file Last Filed Vital Signs Vital Sign Reading Time Taken Comments Blood Pressure - - Pulse - - Temperature - - Respiratory Rate - - Oxygen Saturation - - Inhaled Oxygen Concentration - - Weight 68 kg (150 lb) 02/21/2021 2:44 PM CDT Height 154.9 cm (5' 1) 02/21/2021 2:44 PM CDT Body Mass Index 28.34 02/21/2021 2:44 PM CDT Plan of Treatment Not on file Insurance ANTHEM TRADITIONAL ANTH TRADITIONAL ANTHEM ACCESS Member Subscriber Plan / Payer ( fective 2021-Present) Name:Facundo Agosto Relation to Subscriber:Spouse Name:AGUSTIAN AGOSTO Subscriber ID:Not on file Date of :1963 Payer ID:[id number] (NAIC) Group ID:[id number] Type: LINDA Address: [facility] [id number] [place] [phone] Care Teams Master Certified Rv Technician Relationship Specialty Start Date End Date Dominique Gallagher NP PCP - General Nurse Practitioner 02/24/20
--- OUTSIDE RECORDS SUMMARY | 2025-09-22 15:45 | XMS_ITS | Data Portability ---
Author Organization [facility] [place] Address [address] [place] [address] [place] [address] Assessment No assessment recorded. Plan of Treatment Reminders Order Date Submit Date Provider Last Modified By Organization Details Last Modified Time Details Appointments None recorded. Lab surgical pathology study 2024 025 [facility] (Lab), [address], [place], [address], 5 20:53:11 test, urine 2024 025 [address] [place], [address], [place], [address], 10:12:43 dhea-sulfat e, serum [address] (Lab), [address], [place], [address], 5 18:40:21 hormone panel, serum or plasma [address] (Lab), [address] [place], [address], 5 18:40:21 HbA1c (hemoglobin A1c), blood [address] (Lab), [address], [place], [address], 5 18:40:22 progesteron e, serum [address] (Lab), [address] [facility], [place], [address], 5 18:40:22 prolactin, serum [address] (Lab), [address] [facility], [place], [address], 5 18:40:22 testosteron e free/testos terone total, ratio, serum [address] (Lab), [address] [facility], [place], [address], 5 18:40:22 TSH, serum or plasma [address] (Lab), [address] [facility], [place], [address], 5 18:40:22 pap, IG + HR HPV - HPV regardless but if HPV is positive need subtyping 16,18/45 2024 025 [facility] (Lab), [address] [facility], [place], [address], 5 01:13:54 urinalysis, dipstick 2024 025 [email or web address] [address], [place], [address], 5 12:45:47 Referral None recorded. Procedures None recorded. Surgeries None recorded. Imaging US, pelvis 2024 025 [email or web address] [address], [place], [address], 5 22:55:16 US, transvagina l 2024 025 [email or web address] [place], [address], [place], [address], 5 22:55:16 Medication Orders progesteron e micronized 200 mg capsule 2024 025 [id number], [address] [place] [address], [id number], 5 17:58:20 estradiol 1 mg tablet 2024 025 [facility] #53122, [address] [place] [address], [id number], 5 18:10:16 progesteron e micronized 100 mg capsule 2024 025 [facility] #79876, [address] [place] [address], [id number], 5 17:58:08 estradiol 0.01% (0.1 mg/gram) vaginal cream 2024 025 [facility] #06594, [address] [place] [address], [id number], 5 12:02:04 Patient TargetsNo targets recorded. Patient InstructionsNo instructions recorded. Reason for Referral None Reported. 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 Elect sunronaldo villa bradford d by Alexi Coppola ed, CT on 2024 at 0009 CDT ----- ----- ----- ----- ----- ----- ----- ----- ----- ----- ----- ----- ----- ----- ----- ----- ----- ---- HPV RESUL TS: HPV mRNA E6/E7 : No HPV mRNA Detec kaylyn NOTE: This high risk HPV mRNA assay detec ts fourt een high- risk HPV types (16, 18, 31, 33, 35, 39, 45, 51, 52, 56, 58, 59, 66, 68) witho ut diffe renti ation . COMME NT: This speci men was revie wed by a Cytot echno logis t and/o r Patho logis t (as indic ated in this repor t) after evalu ation using the Thinp rep Imagi ng Syste m. CLINI CHRISSIE INFOR MATIO N: Menst rual Statu s: LMP (if appli cable ): Clini chrissie Histo ry/Pr eviou s Pap: Type of Neopl andres (if appli cable ): Signi fican t Clini chrissie Findi ngs: Other Histo ry: Hormo sofy (if appli cable ): PAP EDUCA NATALIE L NOTE: The Pap Test is a scree anjali test with an inher ent false negat porter rate. Liqui d-bas ed sampl ing may decre ase, but will not elimi eileen, false negat porter resul ts. A negat porter resul t does not precl ude the prese nce and/o r devel opmen t of disea se, since the prese nce of abnor mal cells in the sampl e depen ds on the locat ion of the lesio n and sampl ing techn ique. Tavon nued regul ar scree anjali is the best metho d of cance r preve ntion . If repor kaylyn cytol ogic findi ng do not corre late with physi chrissie and/o r histo rical findi ngs, furth er inves tigat ion is recom fabiano d, as clini katrina warrjacques nted. Not Available [facility] (Lab) [address] [facility], [place], [address], 05/17/2025 01:13:54 05/12/2005/12/2025 urina lysis , dipst ick Leukocytes - Not Available [facility] huma [address], [place], [address], 05/12/2025 12:44:15 05/12/20 25 05/12/2025 urina lysis , dipst ick Nitrite - Not Available [place] [address], [place], [address], 05/12/2025 12:44:15 05/12/20 25 05/12/2025 urina lysis , dipst ick Urobilinogen - Not Available [facility] lesley [address], [place], [address], 05/12/2025 12:44:15 05/12/20 25 05/12/2025 urina lysis , dipst ick Protein trace Not Available [place] [address], [place], [address], 05/12/2025 12:44:15 05/12/20 25 05/12/2025 urina lysis , dipst ick pH 5 Not Available [place] [address], [place], [address], 05/12/2025 12:44:15 05/12/20 25 05/12/2025 urina lysis , dipst ick Specific Cato 1.015 Not Available [facility] [address], [place], [address], 05/12/2025 12:44:15 05/12/20 25 05/12/2025 urina lysis , dipst ick Ketone - Not Available [place] [address], [place], [address], 05/12/2025 12:44:15 05/12/20 25 05/12/2025 urina lysis , dipst ick Bilirubin - Not Available [facility] [address], [place], [address], 05/12/2025 12:44:15 05/12/2005/12/2025 urina lysis , dipst ick Glucose - Not Available [place] [address], [place], [address], 05/12/2025 12:44:15 05/12/20 25 05/12/2025 urina lysis , dipst ick Appearance clear Not Available Enrrique finn [address], [place], [address], 05/12/2025 12:44:15 05/12/2005/12/2025 urina lysis , dipst ick Color yellow Not Available [place] [address], [place], [address], 05/12/2025 12:44:15 07/05/20 25 07/05/2025 SURGI CHRISSIE PATHO LOGY surgical pathology SEE RESULT S BELOW CASE REPOR T: Surgi chrissie Patho logy Repor t Case: [id number] Autho hitesh lanier Provi yaneli: Elizabeth Goncalves MD Colle cted: 07/05 1341 Order ing Locat ion: [place] Patho [place]y Recei sabrina: 07/06 0318 Patho logis t: Eleno Conn MD Speci men: Su servin EMB ----- ----- ----- ----- ----- ----- ----- ----- ----- ----- ----- ----- ----- ----- ----- ----- ----- ---- FINAL DIAGN OSIS: Su servin, biops y: -Supe rfici al strip s of inact porter su servin. -Mark gn cervi chrissie tissu e. Elect eddie cartwright by Eleno Conn MD on 2024 at 1949 CDT ----- ----- ----- ----- ----- ----- ----- ----- ----- ----- ----- ----- ----- ----- ----- ----- ----- ---- CLINI CHRISSIE INFOR MATIO N: Thick ened Endom jevona majo lanier MICRO SCOPI C DESCR IPTIO N: A micro scopi c exami natio n was perfo rmed. GROSS DESCR IPTIO N: A. Su servin. The speci men is recei sabrina in forma berry, label ed with the patie nt's name and demog raphmax farr only. It consi sts of a 2.6 x 2.0 x 0.2 cm aggre gate of mucus and minut e brown tissu e. The speci men is submi tted entir joon in 1 casse tte. Gross ed by Chrissie rosenberg Not Available [facility] (Lab) [address], [place], [address], 07/06/2025 20:53:10 07/05/20 25 07/05/2025 pregn valerio test, urine HCG negati ve Not Available [place] [address], [place], [address], 07/05/2025 09:53:21 05/23/20 25 05/23/2025 US, pelvi s No observ ation record ed. [email or web address] [place] [address], [place], [address], 05/23/2025 11:48:43 05/23/20 25 05/23/2025 US, trans vagin al No observ ation record ed. [email or web address] [place] [address], [place], [address], 05/23/2025 11:48:53 05/23/20 25 05/23/2025 US, pelvi s No observ ation record ed. [email or web address] Caron [address] [place] [address] 58, [place], [address], 06/01/2025 13:37:32 07/15/20 25 07/15/2025 DEXA, axial skele ton + verte bral fract ure asses sment No observ ation record ed. TREVOR [facility] [address], [place], [address], 07/19/2025 10:17:28 07/28/2007/28/2025 XR, lumba r spine No observ ation record ed. [email or web address] [facility] [address], [place], [address], 07/30/2025 22:12:05 Result Notes None recorded. Problems Name Problem SNOMED Code Status Onset Date Resolution Date Notes Provider Name and Address Organization Details Recorded Time Screenin g for malignan t neoplasm of cervix Completed 201412/20/2020 Pap Smear;Pr actice ID: 0001 Maliariana lynn, [facility] 16:06:30 Screenin g for malignan t neoplasm of rectum Completed 201412/20/2020 Screenin g for malignan t neoplasm s of the rectum;P ractice ID: 0001 Maliariana lynn, [facility] 16:06:33 Overweig ht [id number] Completed 201412/20/2020 Overweig ht;Recor ded Elsewher e: No Locat ion: [facility] S ource: EHR Oral And Maxillofacial Surgery thomas: N Practi ce ID: 0001 Gualberto lable Time: 03:30:00 PM Malia Mar shane [facility] 16:06:28 Adult health examinat ion Completed 201412/20/2020 ROUTINE MEDICAL EXAM;Rec orded Elsewher e: No Locat ion: [facility] S ource: EHR Oral And Maxillofacial Surgery thomas: N Practi ce ID: 0001 Gualberto lable Time: 03:30:00 PM Malia Mar shane [facility] 16:06:21 Speciali zed medical examinat ion Completed 201412/20/2020 Gynecolo gical Examinat ion;Christiano rded Elsewher e: No Locat ion: [facility] S ource: EHR Oral And Maxillofacial Surgery thomas: N Practi ce ID: 0001 Gualberto lable Time: 03:30:00 PM Malia Mar [facility] 16:06:[address] Concept Completed 201512/20/2020 Encntr for general adult medical exam w/o abnormal findings ;Practic e ID: 0001 Malia Mar shane [facility] 1 16:06:[address] Concept Completed 201512/20/2020 Encntr for professor of biology exam (general ) (routine ) w/o abn findings ;Practic e ID: 0001 Malia Mar null, [facility] 1 16:06:37 Body mass index 25-29 - overweig ht [id number] Completed 201712/20/2020 Body mass index (BMI) 29.0-29. 9, adult;Re corded Elsewher e: No Locat ion: [facility] S ource: EHR Oral And Maxillofacial Surgery thomas: N Practi ce ID: 0001 Gualberto lable Time: 05:30:00 PM Malai lynn, [facility] 1 16:06:23 Hypertro phy of uterus [id number] Completed 201712/20/2020 Enlarged uterus;R ecorded Elsewher e: No Locat ion: [facility] S ource: EHR Oral And Maxillofacial Surgery thomas: N Practi ce ID: 0001 Gualberto lable Time: 05:30:00 PM Malia lynn, [facility] 16:06:26 Problem Notes None recorded. Procedures Surgical History Date Name Laterality Status Provider Name and Address Organization Details Recorded Time 07/05/20 25 Endometrial Biopsy completed ANDRA JOHNSON MD [address], [place], [address], [facility] 07/05/2025 10:12:29 05/12/20 25 Date of Last Pap Smear completed Gale Greer [facility] 07/05/2025 09:45:15 06/21/20 24 Date of Last Mammogram completed Anne-Marie Taylor [facility] 10/20/2024 17:25:38 09/13/20 20 Hysteroscopy completed Emilee Saez CNM [address], [place], [address], [facility] 09/13/2020 12:43:10 09/13/20 20 [facility] 09:41:48 06/02/19 94 delivery completed [facility] 02/09/2024 11:48:34 10/06/18 91 extraction of wisdom tooth completed [facility] 02/09/2024 11:47:51 Imaging Results None recorded. Procedure Notes None recorded. Medical Equipment None Reported. Allergies Allergen ID Allergen Name Allergen Category Reaction Reaction Severity Criticality Documentation Date Start Date Code Code System Note Provider Name and Address Organization Details Recorded Time 61525 copper environme nt,medica tion Not available Not available low 09/20/20252010 2837 RxNorm unrec ogniz ed react ion (text : Unkno wn, code: 49341 5006) (from [facility]) Not Available todd - External Data Service - prod 09:29:19 Medications Name Sig Start Date Stop [...] Prescrib ed Elsewher e: Yes [facility] By: edi donovan DateTime : 03/06/20 03:30:00 PM Not Available Not Available Not [...] and Address Organization Details Last Updated DateTime 10/20/2024 154.94 cm 30.2 kg/m2 62003.78 g 117/76 mm[Hg] Anne-Marie Taylor [facility] 10/20/2024 17:47:17 Date Recorded Body height Body mass index (BMI) Body weight Systolic And Diastolic Provider Name and Address Organization Details Last Updated DateTime 05/12/2025 154.94 cm 29.2 kg/m2 18737.1 g 102/66 mm[Hg] [facility] 05/12/2025 12:01:43 Date Recorded Body height Body mass index (BMI) Body weight Systolic And Diastolic Provider Name and Address Organization Details Last Updated DateTime 05/31/2025 154.94 cm 29.7 kg/m2 07791 g 111/72 mm[Hg] [facility] 05/31/2025 17:35:17 Date Recorded Body height Body mass index (BMI) Body weight Systolic And Diastolic Provider Name and Address Organization Details Last Updated DateTime 07/05/2025 154.94 cm 29.5 kg/m2 35733.41 g 108/70 mm[Hg] Gale Greer [facility] 07/05/2025 09:45:00 Social History Question Answer Notes LastModified by Organizat ion Details LastModified Time Tobacco Smoking Status Never Smoker Malia lynn, [facility] 12/20/2020 16:05:50 Do You Have An Advance Directive? No [email or web address] Information n ot available 12/20/2020 How Many Years Have You Consumed Alcohol? 30 [email or web address] Information not available 05/12/2025 Are You Blind Or Do You Have Difficulty Seeing? No [email or web address] Information n ot available 12/20/2020 What Is Your Level Of Caffeine Consumption? Moderate [email or web address] Information not available 05/12/2025 In The 14 Days Before Symptom Onset, Have You Had Close Contact With A Laboratory-confirm ed COVID-19 While That Case Was Ill? No [email or web address] Information n ot available 12/20/2020 In The 14 Days Before Symptom Onset, Have You Had Close Contact With A Person Who Is Under Investigation For COVID-19 While That Person Was Ill? No [email or web address] Information not available 12/20/2020 Have You Been To An Area Known To Be High Risk For COVID-19? No [email or web address] Information not available 12/20/2020 Are You Deaf Or Do You Have Serious Difficulty Hearing? No Information not available 12/20/2020 What Type Of Diet Are You Following? REGULAR [email or web address] Information n ot available 03/07/2021 What Is The Highest Grade Or Level Of School You Have Completed Or The Highest Degree You Have Received? [id number] [email or web address] Information not available 12/20/2020 Are There Any Guns Present In Your Home? No [email or web address] Information not available 12/20/2020 What Was The Date Of Your Most Recent Tobacco Screening? 02/09/2024 [email or web address] Information not available 02/09/2024 Have You Ever Been Counseled For Unhealthy Alcohol Use? No [email or web address] Information not available 12/20/2020 Do You Use Protection During Sex? No Information not available 05/12/2025 Do You Use Your Seat Belt Or Car Seat Routinely? Yes Information not available 12/20/2020 Do You Have Smoke And Carbon Monoxide Detectors In Your Home? Yes [email or web address] Information not available 12/20/2020 How Much Tobacco Do You Smoke? No [email or web address] Information not available 08/09/2020 Do You Use Sunscreen Routinely? Yes [email or web address] Information not available 12/20/2020 Has Tobacco Cessation Counseling Been Provided? No [email or web address] Information not available 12/20/2020 Have You Used IV Drugs? No [email or web address] Information not available 12/20/2020 Do You Have Difficulty Walking Or Climbing Stairs? No [email or web address] Information not available 01/02/2022 Sex: Unknown Functional Status Question Answer Note LastModified by Organizat ion Details LastModified Time Do you use any illicit or recreational drugs? No [email or web address] Information not available 12/20/2020 Do you or have you ever used any other forms of tobacco or nicotine? No [email or web address] Information not available 12/20/2020 What is your level of alcohol consumption? Occasional [id number] Information not available 08/08/2020 Do you or have you ever used smokeless tobacco? Never used smokeless tobacco [email or web address] Information not available 12/20/2020 Are you able to walk independently without assistance or assistive devices? YESWOREST [email or web address] Information not available 12/20/2020 Are you able to care for yourself independently? Yes [email or web address] Information not available 01/02/2022 What is your occupation? Retired [email or web address] Information not available 05/12/2025 Do you have difficulty dressing, bathing, grooming, or toileting? No [email or web address] Information not available 01/02/2022 Do you or have you ever used e-cigarettes or vape? Never used electronic cigarettes [email or web address] Information not available 12/20/2020 What is your exercise level? Occasional [id number] Information not available 08/08/2020 Mental Status Question Answer Note LastModified by Organization D etails LastModified Time Do you feel stressed (tense, restless, nervous, or anxious, or unable to sleep at night)? [id number] [email or web address] Information not available 12/20/2020 Family History Relationship Description Onset Age of this Age Resolved Age Notes LastModified by Organization Details LastModified Time Mother Diabetes mellitus [email or web address] Not available 2019 13:33:30 Mother Malignant neoplasm of pharynx [email or web address] Not available 2024 11:46:20 Mother Malignant neoplasm of thyroid gland 48 [email or web address] Not available 2024 11:46:20 Father Malignant neoplasm of liver 76 [email or web address] Not available 2024 11:46:20 Sister Cyst of ovary [email or web address] Not available 2024 11:46:20 Notes:Father: Liver Cancer [...] ICD10 Code Diagnosis IMO Codes Diagnosis Note [id number] Suha Soto CNM [place] [address] [address] 07/03/2020 17:04:42 07/04/2020 17:47:30 Vaginitis 81105803 N76.0 No tenderness on exam. Will treat with flagyl. If pt develops any pain, flu like symptoms, or fever she will will need to call right away. Abnormal u terine bleeding 1005783594 9100 N93.9 One occurence of abnormal bleeding. Due to the length of cycle I would like to start with u/s evaluation . Will determine follow up after complete. Discussed importance of calling if cycle lasts longer than 7 days. [id number] Jimmy Mendosa MD [place] [address] [address] 07/10/2020 16:47:28 07/10/2020 17:46:07 Abnormal uterine bleeding 9367975338 9100 N93.9 [id number] Suha Soto [facility] [address],[place] [address] 07/19/2020 09:40:06 07/19/2020 17:12:31 Gynecologic examination 79933358 Z01.419 Take Calcium with Vitamin D 12-1500mg daily. Do monthly self breast exams. It is advised to get annual flu shot in the fall and she could obtain at [facility] or [facility] clinic. If you haven't received the Tdap vaccine in the last 10 years you should obtain one as well. Have mammogram yearly, bone density every 2-3 years and colonoscop y every 5-10 years depending on findings and history. Engage in daily exercise of low impact aerobic exercise 45-60 minutes 4-5 times weekly. Avoid tobacco and illicit drugs as well as using moderation with alcohol intake less than 1-2 8 oz beverages daily. This lifestyle behavior pattern will lead to less health conditions and longer life span. If BMI greater than 25 weight watchers or dietary consult advised. Abnormal bleeding has resolved. Pt has f/u u/s scheduled. Questions have been answered. Patient appears to understand instructio ns, but if you have any further questions call or respond to this email. [id number] Emilee Saez CNM [place] [address] [address] 08/09/2020 09:55:01 08/10/2020 16:36:40 Abnormal uterine bleeding 2730025929 9100 N93.9 [id number] Jimmy Mendosa MD [place] [address] [place] [address] 08/09/2020 09:55:45 08/09/2020 12:26:27 Abnormal uterine bleeding 7158515227 9100 N93.9 [id number] Jimmy Mendosa MD [place] [address] [place] [address] 09/21/2020 10:03:13 09/21/2020 11:13:03 Cyst of right ovary 6291137224 5651244 N83.201 N93.9 [id number] [facility] [address] [place] [address] 09/13/2020 09:28:56 09/13/2020 12:44:52 Menometrorrhagia 923172792 N92.1 Nausea and vomiting 1693 2000 R11.2 [id number] Emilee Saez [facility] [address] [address] 09/21/2020 10:06:31 09/21/2020 13:13:56 Postoperative visit 100682285 Z09 Abnormal u terine bleeding 3018647134 9100 N93.9 [id number] Emilee Saez [facility] [address],[place] [address] 12/20/2020 15:57:09 12/20/2020 16:26:10 Irregular periods 14173172 N92.6 [id number] Emilee Saez [facility] [address],[place] [address] 03/07/2021 16:59:03 03/07/2021 22:29:22 Abnormal uterine bleeding 4270357139 9100 N93.9 [id number] Jimmy Mendosa MD [place] [address],[place] [address] 03/07/2021 16:58:37 03/07/2021 17:48:43 Cyst of right ovary 4585248737 2489700 N83.291 Uterine leiomyoma 007317 05 D25.9 [id number] Emilee Saez [facility] [address],[place] [address] 04/13/2021 15:05:56 04/13/2021 16:05:24 Postmenopausal bleeding 56874074 N95.0 Hormone re placement therapy 568784454 Z79.890 [id number] MD Dennis Srivastava [address],[place] [address] 04/13/2021 15:05:24 04/13/2021 15:47:20 Postmenopausal bleeding 56944476 N95.0 N83.291 [id number] MD Dennis Srivastava [address] [address] 05/11/2021 10:27:44 05/11/2021 12:49:08 Cyst of left ovary 4759629702 7439738 N83.202 Abnormal u terine bleeding 7845209065 9100 N93.9 this patient is a 55-year-ol d female. She has experience d irregular bleeding, endometria l polyp, ovarian cysts, uterine fibroids. We discussed her history, we discussed her ultrasound findings. We both viewed images from her ultrasound . We reviewed her labs. The patient still high estrogen , a normal FSH. we discussed that there should be significan t ovarian activity with these labs as they are. We spent over 35 minutes face-to-fa ce. We discussed treatment options for her irregular bleeding. She is having symptoms with micronized progestero ne. We agreed to change to norethindr one-5 mg q.day. We talked about ovarian cyst. We reviewed the ultrasound results in light of our discussion ovarian cysts and complex due ovarian cyst. We agreed to obtain CA 125 repeat ultrasound 8 weeks. She will follow up in 8 weeks. She will start norethindr one. We will repeat ultrasound weeks. We addressed 3 complex topics. [id number] Jimmy Mendosa MD [place] [address],[facility] [place] [address] 06/25/2021 09:30:23 06/25/2021 11:15:16 Cyst of left ovary [id number] N83.202 [id number] Jimmy Mendosa MD [place] [address],[facility] [place] [address] 07/04/2021 17:29:26 07/05/2021 12:21:16 Perimenopausal disorder [id number] N95.9 this patient is a 55-year-ol d female who presents for follow-up on ovarian lesion and irregular bleeding. She was bleeding irregularl y. She had an elevated estradiol and a fairly normal FSH/elevat ed FSH. She appeared to be perimenopa usal with irregular bleeding. We started cyclic progestero ne. It has controlled her bleeding. We followed up with ultrasound on the ovarian lesion and has resolved. She does have a fibroid uterus and had a slightly thickened endometriu m. I believe this thickened endometriu m is normal given the circumstan asya, the elevated/n ormal estrogen. We reviewed the ultrasound today. The ovary looks normal today with resolution of the lesion. The endometriu m remains mildly thickened. She is having regular withdrawal bleeds. She is about at the end of her cycle about to have a menses. She is going to continue the cyclic progestero ne until she has 2 consecutiv e cycles without bleeding. At that time she is going to check an estradiol level. This can be done long with an FSH and LH. We are also going to check estradiol again today. She is not taking progestero ne at this time. We spent more than 15 minutes face-to-fa ce discussing all these matters. These are fairly complex discussion s. She is checking her estradiol today. We will wait for her bleeding does stop. Repeat estradiol at that time. [id number] Emilee Saez CNM [place] [address] [address] 01/02/2022 09:55:15 01/02/2022 11:24:56 Irregular periods [id number] N92.6 hx and will recheck us talk to jamel about stopping cycles after results are in Gynecologi c examination [id number] Z01.419 [id number] Jimmy Mendosa MD [place] [address] [address] 01/07/2022 17:24:24 01/07/2022 17:47:52 Abnormal uterine bleeding [id number] 9100 N93.9 D25.9 this patient is a 55-year-ol d female. She has experience d irregular bleeding, endometria l polyp, ovarian cysts, uterine fibroids. We discussed her history, we discussed her ultrasound findings. We both viewed images from her ultrasound . We reviewed her labs. The patient still high estrogen , a normal FSH. we discussed that there should be significan t ovarian activity with these labs as they are. We spent over 35 minutes face-to-fa ce. We discussed treatment options for her irregular bleeding. She is having symptoms with micronized progestero ne. We agreed to change to norethindr one-5 mg q.day. We talked about ovarian cyst. We reviewed the ultrasound results in light of our discussion ovarian cysts and complex due ovarian cyst. We agreed to obtain CA 125 repeat ultrasound 8 weeks. She will follow up in 8 weeks. She will start norethindr one. We will repeat ultrasound weeks. We addressed 3 complex topics. [id number] Jimmy Mendosa MD [place] [address] [address] 04/18/2022 10:31:39 04/18/2022 12:22:37 Abnormal uterine bleeding [id number] 9100 N93.9 D25.9 this patient is a 56-year-ol d female presents for follow-up on abnormal uterine bleeding. We had started her progestero ne daily. She has been using them for 5 months. We talked about ultrasound follow-up. That does not seem like it was required. She had a CA 125 previously that was normal. She must have had an ovarian cyst. But that was resolved on the last ultrasound . We spent 15 minutes face-to-fa ce. More than 50% was counseling . We agreed to take progestero ne for 6 more months and then discontinu ed observe for bleeding. [id number] PAMELA Lerner [place] [address] [address] 02/09/2024 11:01:54 02/09/2024 14:43:18 Gynecologic examination [id number] Z01.419 WWEpostmen opausalpap updateddec lined STI screenmamm ogram order givencolon oscopy due 2025routin e labs UTD/PCP Take Calcium with Vitamin D daily.Do monthly self breast exams.It is advised to get annual flu shot in the fall and she could obtain at [facility] or [facility] take care clinic. If you haven't received the Tdap vaccine in the last 10 years you should obtain one as well.Have mammogram yearly, bone density every 2-3 years and colonoscop y every 5-10 years depending on findings and history.En familia in daily exercise of low impact aerobic exercise 45-60 minutes 4-5 times weekly. Avoid tobacco and illicit drugs as well as using moderation with alcohol intake less than 1-2 8 oz beverages daily. This lifestyle behavior pattern will lead to less health conditions and longer life span. If BMI greater than 25 dietary consult advised.Qu estions have been answered. Patient appears to understand instructio ns, but if you have any further questions call or respond to this email encouraged PCP and rheumatolo gy f/u on joint painlabs ordered per pt request Screening for malignant neoplasm of breast [id number] Z12.39 Vaginal dryness 01923165 N89.8 Management options reviewedrx sent for vaginal estradiol cream, r/b/a reviewedve g based moisturize r routine discussedq uestions answered Time spent in visit is a total of 30 mins with at least 50% of visit consisting of counseling and review of plan of care. [id number] Jimmy Mendosa MD [place] [address] [address] 10/20/2024 17:20:20 10/20/2024 18:28:59 Vaginal dryness [id number] N89.8 this patient is a 59-year-ol d female with marked vaginal dryness and pain with intercours e. She has joint pain, hair thinning, chronic inflammati on. She would like to trial hormone replacemen t therapy. She understand s that she we will need to take combined hormone replacemen t therapy. We reviewed the risk of combined hormone replacemen t therapy in the over 68 group. She understand s the risks. She was quoted statistics on the increased incidence of heart attack, breast cancer, stroke in hormone replacemen t therapy patient is. She understand s the risks and is eager to proceed. We will start with 1 mg of estradiol and 100 mg of micronized progestero ne. She will follow up in 1 month. I spent over 30 minutes on her care in total. Considerab le time was spent counseling , reviewing chart and record keeping. Menopausal symptom 77344 [id number] N95.1 [id number] MAGED BALTAZAR, VIRIDIANA [place] [address] [address] 05/12/2025 11:46:07 05/12/2025 13:56:32 Abnormal uterine bleeding [id number] 9100 N93.9 The patient and I discussed the various causes of abnormal uterine bleeding, including polyps, fibroids, hyperplasi a, atypia, anovulatio n, etc. We reviewed the typical evaluation with labs, pelvic US and possible endometria l biopsy. Briefly discussed the options available for treatment (depending on the results of evaluation ). We spent more than 30 minutes face to face.Will assess labs and pelvic ultrasound .Pap smear updated today.Lilian ent to RTO for ultrasound f/u and to discuss next steps in plan of care. [id number] Jimmy Mendosa MD [place] [address] [address] 05/23/2025 10:27:47 05/23/2025 11:13:44 Postmenopausal bleeding [id number] N95.0 12821 [id number] MAGED BALTAZAR NP [place] [address] [address] 05/31/2025 17:29:04 05/31/2025 18:08:29 Postmenopausal bleeding 03831287 N95.0 04639 -Patient reports taking HRT with oral estradiol 1 mg and micronized progestero ne 100 mg PO daily since 10/20/24. History of several episodes of spotting over the past few months.-Best barrientos and I discussed pelvic ultrasound results - showing fibroid uterus (essential ly unchanged from ultrasound from 2021) and endometria l lining thickness of 6.4 mm.-Recomm ended increasing progestero ne to 200 mg PO daily to help thin endometria l lining.-Di scussed that endometria l biopsy is recommende d due to thickened endometria l lining. Risks/bene fits/AEs reviewed. EMB to be scheduled with .-Patien t verbalized understand ing and satisfacti on with plan of care. [id number] ANDRA JOHNSON MD [place] [address] [address] 07/05/2025 09:32:06 07/05/2025 10:42:46 Screening procedure [id number] Z13.9 010784 Postmenopa usal bleeding [id number] N95.0 57736 - EMB performed without issue- will follow up on results as available Health Concerns Section Related Observation LastModified by Organization Detai ls LastModified Time None Recorded Concern Status LastModified by Organization Details LastModified Time None Recorded Advance Directives Directive N: Payers Insurance Date Sequence Insurance Name Policy Number Policy Barragan Covered Member ID Barragan Member ID Guarantor Name 05/11/2025 1 [place] 113 Pedro Pablo Hanson Surendra [id number] Facundo A Surendra 07/04/2025 1 [place] [id number] Facundo Agosto [id number] Facundo Sadler Surendra Notes Date Note Type Note Provider Name and Address Organization Details Recorded Time 5 text/html MenopauseReported by Patient this patient is a 59-year-old female with marked vaginal dryness and pain with intercourse. She has joint pain, hair thinning, chronic inflammation. She would like to trial hormone replacement therapy. She understands that she we will need to take combined hormone replacement therapy. We reviewed the risk of combined hormone replacement therapy in the over 68 group. She understands the risks. She was quoted statistics on the increased incidence of heart attack, breast cancer, stroke in hormone replacement therapy patient is. She understands the risks and is eager to proceed. We will start with 1 mg of estradiol and 100 mg of micronized progesterone. She will follow up in 1 month. I spent over 30 minutes on her care in total. Considerable time was spent counseling , reviewing chart and record keeping. Jimmy Mendosa MD [address], [place], [address], [facility] 10/20/2024 18:26:39 5 text/html 59 y/o female presents with c/o post-menopausal bleeding. Patient states that over the past three months, she has had three instances of light pink spotting that is mainly noticeable when wiping and sometimes in her underwear. Patient states that she has not had a period since October 2022. Patient reports taking HRT with oral estradiol 1 mg and micronized progesterone 100 mg PO daily since 10/20/24. Hx of multiple small fibroids noted on U/S in 2021. Neg pain of abd/pelvis/flankNeg urinary sx'sNeg GI sx'sNeg N/V/F/C/DNeg Vag d/c, odor, irritation, itching MAGED BALTAZAR NP [address], [place], [address], [facility] 05/12/2025 13:55:55 5 text/html 59 y/o female presents for ultrasound follow-up s/p post-menopausal bleeding. MAGED BALTAZAR NP [address], [place], [address], [facility] 05/31/2025 17:59:31 5 text/html ROS as noted in the HPI Patient presents for endometrial biopsy indicated for postmenopausal bleeding. Endometrial stripe measured 6.4mm on recent US. ANDRA JOHNSON MD [address], [place], [address], [facility] 07/05/2025 10:41:40 OBGyn Episode Ob Episode Information Episode Created Date Number of Fetuses Patient Bloodtype Patient rh Status Prepregnancy Weight lbs Domestic Partner Domestic Partner Phone Father Name Event Security Officer Status 07/03/20 20 1 CLOSED Fetus Data First Name Last Name Admitted to NICU Weight (g) Sex Living Outcome Pediatric Complications Fetus ID Race Codes Race Delivery Type 1020.58 2 M Prematur e [id number] Primary Stanislav Calculation Initial Stanislav Date Initial Exam Date Initial Exam Provider Initial Ultrasound Date Last Menstrual Period Date Ultra Sound Weeks Gestation 0 Eighteen To Twenty Week Stanislav Update Ultra Sound Date Fundal Height At Umbil Quickening Date Ultra Sound Latest Weeks Gestation Final Stanislav Confirmed By Final Stanislav Confirmed Date Final Stanislav Date Ultra Sound Latest Days Gestation 0 0 Menstrual History Last Menstrual Date Menses Monthly On Bcp Conception Prior Menses Frequency Hcg Plus Date Menarche Onset Age Delivery Information Delivery Date Delivery Type Labor Anesthesia Weeks Gestation Incision Type Labor Labor Length Hrs Delivered By Post Complications Tubal Sterilization Discharge Date Comments 4 27 Discharge Information Feeding Method Contraceptive Method Maternal HG B and HCT Levels
== END 2025-09-22 14:49 | disposition home or self-care (01) ==
LOC: ANHFOHIMG 14:52
PROVIDERS: PCP Obstetrics & Gynecology; Visit Provider Physician Assistant Medical
DX: Z12.31 Encounter for screening mammogram for malignant neoplasm of breast (principal)
CPT/HCPCS: 77063; 77067